=== PATIENT | male | born 2000 | race Caucasian/White ===

== ENCOUNTER 2022-12-09 16:24 | Emergency (ER) | payer MEDICAID, SELFPAY ==
[2022-12-09 16:31] VITALS: BP 121/78; PULSE 67; RESP 18; TEMP 36.7; O2SAT 100; BMI 26.3
--- NOTE | 2022-12-09 17:06 | ED_ITS ---
HPI - Abdominal Pain General Time Seen by Provider: 17:06 Date Seen: 12/09/22 Chief Complaint: Abdominal Pain Stated Complaint: Stomach issues Time Seen by Provider: 12/09/22 17:05 Source: patient and RN notes reviewed Mode of arrival: ambulatory Limitations: no limitations History of Present Illness HPI narrative: Dony is a 22-year-old male coming in with his guardian with concern of sore rectal area from about a 2 week history of diarrhea per report. They state that they were at a different outside clinic, he got a rectal exam and was told that he was probably constipated. They were upset as they state an abdominal exam was never done. He has not had any stool production for about 2 days but really isn't eating much per report. He has had some nausea but no vomiting. No fevers with this. His rectal area sore. His guardian has been helping him white to do it more gently and they have been applying some hydrocortisone. She did bring a picture in where it looks to be some hemorrhoidal tissue but pictures a bit blurry. They have reptiles at home and dogs. There has been no significant travel, went to [place] but not to any [employer] recently. No known ill contacts. There is no history of C difficile colitis. His dad had it about 7 years ago but that is the only known exposure. Patient himself has never had it. Related Data Allergies Allergy/AdvReac Type Severity Reaction Status Date / Time Penicillins Allergy Verified 12/09/22 16:31 Review of Systems Status of ROS Reports: 6 or more systems reviewed and unremarkable except as noted in History and below PFSH PFS Social History Smoking Status: Current every day smoker Do you use any of these nicotine containing products: E-Cigarettes Second hand tobacco smoke exposure: No How often do you have a drink containing alcohol: never How often do you have six or more drinks on one occasion: Never AUDIT-C Alcohol total score: 0 Non-prescribed substance use: marijuana (any form) Non-prescribed substance use details: daily medical marijuana service: No Exam Const: Vital Signs, click to edit/add: Vital Signs - 24 hr 12/09/22 16:31 Temperature 98.1 F Pulse Rate [Pulse Oximeter] 67 Respiratory Rate 18 Blood Pressure [Ri ght Upper Arm] 121/78 Pulse Oximetry 100 Oxygen Delivery Me thod Room Air Documenting provider has reviewed patient's vital signs: yes Common normals: no apparent distress, oriented x3, no limitations, healthy appearing, alert and well nourished General appearance: cooperative, comfortable, well kempt and well developed Nutritional appearance: overweight HENMT: Common normals: normocephalic, head/scalp atraumatic, hearing grossly normal bilaterally, moist oral mucous membranes and oropharynx normal Head and scalp: normocephalic and atraumatic Face and sinus: normal facial exam Eye: Common normals: PERRL, EOMs intact bilaterally, conjunctivae normal and no scleral icterus Conjunctiva: conjunctiva(e) normal Pupil: PERRL Neck & C-Spine: Common normals: full ROM, no lymphadenopathy, supple and no JVD Resp: Common normals: normal respiratory effort, no retractions, no use of accessory muscles and clear to auscultation bilaterally Auscultation: clear to auscultation bilaterally Cardio: Common normals: no JVD, regular rate, regular rhythm, S1 normal heart sound, S2 normal heart sound, no gallops and no clicks Rate: regular rate Rhythm: regular rhythm Heart sounds: S1 normal and S2 normal GI: Common normals: soft to palpation and no hepatosplenomegaly Inspection: normal to inspection Auscultation: absent bowel sounds Palpation: soft and no hepatosplenomegaly Other: Abdomen is soft, nontender anywhere but I do not hear bowel sounds. There certainly not any masses. Inspection of the anal area reveals some erythema that extends a ways out, no excoriations or open wounds. No visible hemorrhoids at this time. There is a little bit of whitish material which is the hydrocortisone cream that they had put over the area of erythema on the skin. Extremity: Common normals: no pedal edema Neuro: Common normals: oriented x3 and moves all extremities Sensorium/orientation: alert Speech: speech normal Gait (neuro): normal gait Psych: Appearance: well kempt Course Course Hospital Course: Mom is concerned and would like abdominal imaging, I think it is fair to start with a flat and upright. Will get baseline labs on him. Have discussed conservative management for the irritated anal area. Reevaluation(s) Time of Reevaluation #1: 18:59 Reevaluation #1: X-ray imaging has not been read by Radiology but they are requesting to leave. I have reviewed the normal lab workup with them. I personally do not see any evidence of any acute pathology on this flat and upright of his abdomen on imaging but the understand that there is no radiology over read. They may have to return if there is any concern. They would like to try to go home at this time. Vital Signs Vital signs: Initial Vital Signs Temperature 98.1 F 12/09/22 16:31 Temperature Source Temporal Artery Scan 12/09/22 16:31 Pulse Rate 67 12/09/22 16:31 Pulse Rhythm Regular 12/09/22 16:31 Respiratory Rate 18 12/09/22 16:31 Blood Pressure 121/78 12/09/22 16:31 Blood Pressure Mean 92 12/09/22 16:31 Blood Pressure Position Sitting 12/09/22 16:31 Pulse Oximetry 100 12/09/22 16:31 Oxygen Delivery Method Room Air 12/09/22 16:31 Vital Signs Temperature 98.1 F 12/09/22 16:31 Pulse Rate 67 12/09/22 16:31 Respiratory Rate 18 12/09/22 16:31 Blood Pressure 121/78 12/09/22 16:31 Pulse Oximetry 100 12/09/22 16:31 Oxygen Delivery Method Room Air 12/09/22 16:31 Temperature 98.1 F 12/09/22 16:31 Pulse Rate 67 12/09/22 16:31 Respiratory Rate 18 12/09/22 16:31 Blood Pressure 121/78 12/09/22 16:31 Pulse Oximetry 100 12/09/22 16:31 Oxygen Delivery Method Room Air 12/09/22 16:31 MDM - Abdominal Pain Differential Diagnosis Differential diagnosis: Likely abdominal pain, constipation, gastroenteritis and small bowel obstruction Lab Data Attestation: I reviewed the patient's lab results. Labs: Lab Results 12/09/22 Range/Units 17:40 WBC 7.13 (4.50-11.00) K/uL RBC 5.36 (4.30-5.90) m/uL Hgb 14.8 (13.5-17.5) gm/dL Hct 43.1 (37.0-53.0) % MCV 80 (80-100) fL MCH 28 (26-34) pg MCHC 34 (32-36) gm/dL RDW Coeff of Silas 11.7 (11.5-15.5) % Plt Count 267 (140-440) K/uL Neut % (Auto) 55.6 (42.0-72.0) % Lymph % (Auto) 33.8 (20-44) % [place] % (Auto) 6.6 (0.0-11.0) % Eos % (Auto) 3.2 (0.0-7.0) % Baso % (Auto) 0.7 (0.0-3.0) % Neut # (Auto) 3.96 (1.7-7.0) K/uL Lymph # (Auto) 2.41 (0.90-2.90) K/uL [place] # (Auto) 0.50 (0.00-0.90) K/UL Eos # (Auto) 0.23 (0.00-0.50) K/uL Baso # (Auto) 0.05 (0.00-0.30) K/uL Abs Immat Gran (auto) 0.01 (0.00-0.30) K/uL Imm/Tot Granulo (auto) 0.1 % Sodium 140 (135-149) mmol/L Potassium 3.5 L (3.6-5.1) mmol/L Chloride 108 (96-114) mmol/L Carbon Dioxide 20 (20-32) mmol/L BUN 15 (5-24) mg/dL Creatinine 0.9 (0.5-1.5) mg/dL Estimated Creat Clear 112.94 Estimated GFR 125 ml/min Glucose 97 (60-115) mg/dL Calcium 8.7 (8.4-10.6) mg/dL C-Reactive Protein < 0.5 L (0.5-1.0) mg/dL Imaging Data Abdominal x-ray: Attestation: I have reviewed the pertinent imaging results. My impression: I see no acute evidence of any obstructive pathology on this flat and upright. Await Radiology over-read. Radiologist's impression: Patient: DONY BROWNING Facility:?[facility] Patient ID:?[id number] Site Patient ID:?[id number]. Site :?2001 Study:?XRay Abdomen/Pelvis 2 VIEWS-12/09/2022 6:12:31 PM Ordering Physician:Val Rodriguez Final Report: Indication: Abdominal pain, diarrhea. Technique: Abdomen 2 view. Comparison: None. Findings/Impression: Non-obstructive bowel gas pattern. No free air. No abnormal abdominal calcifications. Osseous structures are unremarkable for age. Dictated by Truong Spears MD @ 12/09/2022 7:19:02 PM (Electronic Signature) Critical Care Time Critical Care Time Critical Care Time: No Discharge Plan Discharge Clinical Impression: Perianal excoriation, Diarrhea Patient Disposition: Home w/ Parent or Adult Condition: Stable Instructions: Acute Diarrhea (ED), Nutrition Tips for Relief of Diarrhea (ED) Additional Instructions: Recommend getting a barrier cream like Desitin and using this between stools. To wipe, would recommend getting non perfumed sensitive baby wipes so that you can clean yourself better and not cause the irritation with the toilet paper. Showering daily and allowing the anal area to air dry well is important. Can use a cool blow continuous linter drier operator to blow between the buttocks to get the skin dry. Would apply barrier cream at this point. If diarrhea returns, do recommend getting stool cultures/stool studies done in clinic. Follow handouts. Really need to push fluids to stay hydrated. Can use Tylenol and ibuprofen if needed for any abdominal cramping or pain, follow bottle directions for dosing. Can also try heating pad. Absolutely do need to follow up though if diarrhea returns or if symptoms are continuing. Activity Level: Activity as Tolerated Stand Alone Forms: MyHealth Info Instructions
--- NOTE | 2022-12-09 17:14 | CRLHL7_ITS ---
For Patients: As a result of the Century Cures Act, medical imaging exams and procedure reports are released immediately into your electronic medical record. You may view this report before your referring provider. If you have questions, please contact your health care provider. Indication: Abdominal pain, diarrhea. Technique: Abdomen 2 view. Comparison: None. Findings/Impression: Non-obstructive bowel gas pattern. No free air. No abnormal abdominal calcifications. Osseous structures are unremarkable for age. Dictated by Truong Spears MD @ 12/09/2022 7:19:02 PM (Electronically Signed)
[2022-12-09 17:48] LABS: Basophils Absolute Auto 0.05 K/uL (0.00-0.30); Basophils Percent Auto 0.7 % (0.0-3.0); Eosinophils Absolute Auto 0.23 K/uL (0.00-0.50); Eosinophils Percent Auto 3.2 % (0.0-7.0); Hematocrit 43.1 % (37.0-53.0); Hemoglobin* 14.8 gm/dL (13.5-17.5); Immature Granulocytes Abs Auto 0.01 K/uL (0.00-0.30); Immature Granulocytes Pct Auto 0.1 %; Lymphocytes Absolute Auto 2.41 K/uL (0.90-2.90); Lymphocytes Percent Auto 33.8 % (20-44); Mean Corpuscular HGB Conc 34 gm/dL (32-36); Mean Corpuscular Hemoglobin 28 pg (26-34); Mean Corpuscular Volume 80 fL (80-100); Monocytes Percent Auto 6.6 % (0.0-11.0); Neutrophils Absolute Auto 3.96 K/uL (1.7-7.0); Neutrophils Percent Auto 55.6 % (42.0-72.0); Platelet Count* 267 K/uL (140-440); RDW Coefficient of Variation % 11.7 % (11.5-15.5); Red Blood Count 5.36 m/uL (4.30-5.90); White Blood Count* 7.13 K/uL (4.50-11.00)
[2022-12-09 17:51] LABS: Slide Review Reflex No
[2022-12-09 18:08] LABS: Chloride* 108 mmol/L (96-114)
[2022-12-09 18:09] LABS: Potassium* 3.5 mmol/L (3.6-5.1); Sodium* 140 mmol/L (135-149)
[2022-12-09 18:11] LABS: Creatinine* 0.9 mg/dL (0.5-1.5); Est. Creatinine Clearance* 112.94; Estimated Glomerular Filt Rate 125 ml/min
[2022-12-09 18:12] LABS: Blood Urea Nitrogen* 15 mg/dL (5-24); Carbon Dioxide* 20 mmol/L (20-32)
[2022-12-09 18:13] LABS: Calcium* 8.7 mg/dL (8.4-10.6); Glucose* 97 mg/dL (60-115)
[2022-12-09 18:28] LABS: C Reactive Protein* < 0.5 mg/dL (0.5-1.0)
--- NOTE | 2022-12-09 18:51 | ED.NURSE ---
Mother is out to the desk and is wondering what waiting for and continue to wait for the radiologist to read the report. Offered TV or anything else and ok with this answer and understand.
== END 2022-12-09 19:25 | disposition home or self-care (01) ==
PROVIDERS: Emergency Provider Family Medicine; PCP Family Medicine
DX: F42.4 Excoriation (skin-picking) disorder (principal); R19.7 Diarrhea, unspecified
CPT/HCPCS: 36415; 74019; 80048; 85025; 86140; 99284

== ENCOUNTER 2023-06-13 13:23 | Emergency (ER) | payer MEDICAID, SELFPAY ==
[2023-06-13 13:34] VITALS: BP 119/72; PULSE 104; RESP 22; O2SAT 98; BMI 30.9
--- NOTE | 2023-06-13 13:38 | ED_ITS ---
HPI - Psych General Time Seen by Provider: 13:38 Date Seen: 06/13/23 Chief Complaint: Psychiatric Problem/Disorder Stated Complaint: chest pain, weak Time Seen by Provider: 06/13/23 13:30 Source: patient, family, RN notes reviewed and old records reviewed Mode of arrival: ambulatory Limitations: no limitations History of Present Illness HPI Narrative: Dony is a 22-year-old male accompanied by his mom for concern of chest symptoms and anxiety. Dony has a long-term history of anxiety, autism, ADHD, GERD, history of chronic abdominal pain, migraines. They report that he has been off his Seroquel and trazodone for which she has been on for years for chronic insomnia. He is not sleeping. About 2 weeks ago he was given Vistaril, he feels like he is crawling out of his skin. At times he feels left chest pain, there is some pain with breathing. Endorses being worried about dying from cancer getting cancer, worries about if his parents get cancer. Mom states that his primary provider would not give them a prescription for the Seroquel her trazodone, relaying to me that this provider does not believe in the medication. I cannot attest to this, was not involved in the conversation. I do know looking back in our records that he was on trazodone in 2009, in 2017 he was on Seroquel, trazodone, Topamax, fluoxetine, Vyvanse. Mom states just recently he finally got his Vyvanse prescription. She does know as anxiety is worse, his insomnia is problematic any is not sleeping. He denies any hallucinations, no suicidality. He does admit the lid he can not quit thinking about getting cancer and being worried about this. He had been off fluoxetine for months, was taking his dad, recently got his own prescription. Missed 1 day but otherwise has been taking it. He has had no cough or cold symptoms, no fevers or chills. He does endorse reflux symptoms, regurgitant symptoms despite taking daily omeprazole. They were told that he needs to get medicines from Psychiatry, Mom states she has him on 3 different waiting list, they are unable to get him into Psychiatry for these medicines at this time. Related Data Home Medications Medication Instructions Recorded Confirmed fluoxetine 40 mg capsule 40 mg PO QAM 06/13/23 06/13/23 hydroxyzine HCl 25 mg tablet 25 mg PO QPM PRN anxiety 06/13/23 06/13/23 Previous Rx's Medication Instructions Recorded quetiapine 50 mg tablet (Seroquel) 50 mg PO QHS #30 tabs 06/13/23 trazodone 50 mg tablet 50 mg PO QHS #30 tabs 06/13/23 Allergies Allergy/AdvReac Type Severity Reaction Status Date / Time Penicillins Allergy Verified 12/09/22 16:31 Review of Systems Status of ROS: Reports: 6 or more systems reviewed and unremarkable except as noted in History and below [facility] Social History Smoking Status: Current every day smoker Do you use any of these nicotine containing products: E-Cigarettes Second hand tobacco smoke exposure: No How often do you have a drink containing alcohol: never How often do you have six or more drinks on one occasion: Never AUDIT-C Alcohol total score: 0 Non-prescribed substance use: marijuana (any form) Non-prescribed substance use details: daily medical marijuana service: No Exam Const: Vital Signs, click to edit/add: Vital Signs - 24 hr 06/13/23 13:34 Pulse Rate [Pulse Oximeter] 104 H Respiratory Rate 22 Blood Pressure [Ri ght Upper Arm] 119/72 Pulse Oximetry 98 Oxygen Delivery Me thod Room Air Dony is mildly disheveled but alert. He does not have great eye contact, is less conversive than I remember him to be in the past. His speech is normal when he does speak. Does seem to avoid eye contact at times. Sclerae are clear, conjugate gaze, symmetrical facial function. Lungs are clear, good air entry, no wheezing or crackles. CV regular rate and rhythm, no murmur, normal S1-S2, no S3-S4. No reproducible chest wall pain, abdomen is soft, nontender, nondistended, no organomegaly, no rebound or guarding. Is ambulatory into the E D of his own accord, moving extremities normally. Documenting provider has reviewed patient's vital signs: yes Course Course ED Course: I certainly support a long-term history of insomnia, anxiety, autism, ADHD in his history. With that said, have reviewed with them that we should look at an EKG, some basic labs including a troponin as well as a chest x-ray. I am hopeful that his symptoms are more novelties sales representative of anxiety. He certainly is giving history of perseveration over medical issues. I do think could be reasonable to re-initiate Seroquel and trazodone, he has been off of it for months, would recommend 50 mg of each nightly, right for this medicine but they are going to need to find someone that is willing to take over management and potentially increase the dose is back to his baseline in 2-4 weeks. Reevaluation(s) Time of Reevaluation #1: 15:13 Reevaluation #1: Have reviewed with patient and his mom the normal EKG, normal labs, normal chest x-ray. He is feeling quite jumpy, like his skin is crawling a right now. We discussed holding on the Vistaril at home, will give him 25 mg oral Seroquel prior to discharge. He is relieved his labs and workup is normal. This does provide him some reassurance, did seem smile when I told him everything was okay. He is instructed to continue taking the fluoxetine daily. We will re- initiate bedtime Seroquel and trazodone, he has been off it for few months in do think that it would be beneficial to titrate back up. Thus, have written for 50 mg of each 1 of these medications to start. He is not suicidal, no hallucinations, do think he is stable to discharge. Hopefully with these medicines on board, he will start to improve. If that is not the case, may need more urgent or emergent re-evaluation if worsening. His mom is well aware and will watch him closely. Vital Signs Vital signs: Initial Vital Signs Pulse Rate 104 H 06/13/23 13:34 Respiratory Rate 22 06/13/23 13:34 Blood Pressure 119/72 06/13/23 13:34 Blood Pressure Mean 87 06/13/23 13:34 Blood Pressure Position Sitting 06/13/23 13:34 Pulse Oximetry 98 06/13/23 13:34 Oxygen Delivery Method Room Air 06/13/23 13:34 Vital Signs Pulse Rate 104 H 06/13/23 13:34 Respiratory Rate 22 06/13/23 13:34 Blood Pressure 119/72 06/13/23 13:34 Pulse Oximetry 98 06/13/23 13:34 Oxygen Delivery Method Room Air 06/13/23 13:34 Pulse Rate 104 H 06/13/23 13:34 Respiratory Rate 22 06/13/23 13:34 Blood Pressure 119/72 06/13/23 13:34 Pulse Oximetry 98 06/13/23 13:34 Oxygen Delivery Method Room Air 06/13/23 13:34 MDM - Psych Lab Data Attestation: I reviewed the patient's lab results. Labs: Lab Results 06/13/23 Range/Units 13:58 WBC 8.21 (4.50-11.00) K/uL RBC 6.13 H (4.30-5.90) m/uL Hgb 17.1 (13.5-17.5) gm/dL Hct 48.8 (37.0-53.0) % MCV 80 (80-100) fL MCH 28 (26-34) pg MCHC 35 (32-36) gm/dL RDW Coeff of Silas 11.6 (11.5-15.5) % Plt Count 317 (140-440) K/uL Neut % (Auto) 72.6 H (42.0-72.0) % Lymph % (Auto) 21.3 (20-44) % [place] % (Auto) 5.4 (0.0-11.0) % Eos % (Auto) 0.4 (0.0-7.0) % Baso % (Auto) 0.2 (0.0-3.0) % Neut # (Auto) 6.00 (1.7-7.0) K/uL Lymph # (Auto) 1.75 (0.90-2.90) K/uL [place] # (Auto) 0.40 (0.00-0.90) K/UL Eos # (Auto) 0.03 (0.00-0.50) K/uL Baso # (Auto) 0.02 (0.00-0.30) K/uL Abs Immat Gran (auto) 0.01 (0.00-0.30) K/uL Imm/Tot Granulo (auto) 0.1 % Sodium 138 (135-149) mmol/L Potassium 3.9 (3.6-5.1) mmol/L Chloride 104 (96-114) mmol/L Carbon Dioxide 24 (20-32) mmol/L Anion Gap 10 (7-15) mEq/L BUN 12 (5-24) mg/dL Creatinine 0.8 (0.5-1.5) mg/dL Estimated Creat Clear 122.31 Estimated GFR 129 ml/min Glucose 114 (60-115) mg/dL Calcium 9.6 (8.4-10.6) mg/dL Total Bilirubin 0.8 (0.1-1.5) mg/dL AST 25 (12-35) U/L ALT 22 (4-50) U/L Alkaline Phosphatase 91 (40-150) U/L Troponin I < 0.01 L (0.01-0.04) ng/mL Total Protein 8.4 H (6.0-8.3) g/dL Albumin 5.2 H (3.3-5.0) g/dL Imaging Data Chest x-ray: Attestation: I have reviewed the pertinent imaging results. My impression: I see no acute pathology on my preliminary review. Radiologist's impression: Patient: DONY BROWNING Facility:?[facility] Patient ID:?[id number] Site Patient ID:?[id number]. Site :?2001 Study:?XRay Chest 2V-06/13/2023 2:21:21 PM Ordering Physician:Val Rodriguez Final Report: INDICATION: Chest pain. TECHNIQUE: Chest 2 views. COMPARISON: None. FINDINGS: Cardiovascular and mediastinum: Heart size and vasculature are normal in caliber and appearance. Lungs and pleural spaces: Lungs are clear. No sign of infiltrate or mass. No sign of pleural effusion. No pneumothorax. Bones and soft tissues: No significant findings. IMPRESSION: No acute or significant findings. Dictated by Angel Mckeon MD @ 06/13/2023 2:39:10 PM (Electronic Signature) ECG Data Attestation: I personally reviewed and interpreted this ECG as follows: (Normal sinus rhythm, 85 beats per minute. No acute concerning changes on this EKG. QT corrected 435 milliseconds.) ECG interpretation date: 06/13/23 ECG interpretation time: 14:02 Prior ECG tracings: not available for review Discharge Plan Discharge Clinical Impression: Acute anxiety, Chest pain Patient Disposition: Home w/ Parent or Adult Condition: Stable Instructions: Noncardiac Chest Pain (ED), Anxiety (ED) Additional Instructions: We will initiate Seroquel 50 mg nightly and trazodone 50 mg nightly. If tolerating this and no side effects, dose can be adjusted back to the 100 mg nightly that you use to be on in 2-4 weeks. You will need to find a clinic provider that will take over care of this medicine. Indeed, looking back in the records trazodone has been on board since before 2009, Seroquel at least since 2017 if not before. I do think you need to discuss chronic heartburn symptoms with the primary care provider despite the omeprazole use. Other tests like an EGD and Melissa study could be considered for chronic uncontrolled heartburn, certainly H pylori testing might be indicated if it has never been done. Continue to work on trying to find a psychiatrist, highly support doing this. I do understand it can take time to get into a psychiatrist. We cannot provide refills of these medicines through the ER, have written for a month's worth of each of these which we typically will not do. Hopefully this gives you time to get established with someone that will take over these medicines. Activity Level: No Restrictions Prescriptions: New trazodone 50 mg tablet 50 mg PO QHS Qty: 30 0RF quetiapine [Seroquel] 50 mg tablet 50 mg PO QHS Qty: 30 0RF No Action fluoxetine 40 mg capsule 40 mg PO QAM hydroxyzine HCl 25 mg tablet 25 mg PO QPM PRN (Reason: anxiety) Follow Up/Referrals: Yi Stephens DO [Primary Care Provider] - Stand Alone Forms: [facility] Info Instructions
--- NOTE | 2023-06-13 13:48 | CRLHL7_ITS ---
For Patients: As a result of the Cures Act, medical imaging exams and procedure reports are released immediately into your electronic medical record. You may view this report before your referring provider. If you have questions, please contact your health care provider. INDICATION: Chest pain. TECHNIQUE: Chest 2 views. COMPARISON: None. FINDINGS: Cardiovascular and mediastinum: Heart size and vasculature are normal in caliber and appearance. Lungs and pleural spaces: Lungs are clear. No sign of infiltrate or mass. No sign of pleural effusion. No pneumothorax. Bones and soft tissues: No significant findings. IMPRESSION: No acute or significant findings. Dictated by Angel Mckeon MD @ 06/13/2023 2:39:10 PM (Electronically Signed)
[2023-06-13 14:20] LABS: Basophils Absolute Auto 0.02 K/uL (0.00-0.30); Basophils Percent Auto 0.2 % (0.0-3.0); Eosinophils Absolute Auto 0.03 K/uL (0.00-0.50); Eosinophils Percent Auto 0.4 % (0.0-7.0); Hematocrit 48.8 % (37.0-53.0); Hemoglobin* 17.1 gm/dL (13.5-17.5); Immature Granulocytes Abs Auto 0.01 K/uL (0.00-0.30); Immature Granulocytes Pct Auto 0.1 %; Lymphocytes Absolute Auto 1.75 K/uL (0.90-2.90); Lymphocytes Percent Auto 21.3 % (20-44); Mean Corpuscular HGB Conc 35 gm/dL (32-36); Mean Corpuscular Hemoglobin 28 pg (26-34); Mean Corpuscular Volume 80 fL (80-100); Monocytes Percent Auto 5.4 % (0.0-11.0); Neutrophils Percent Auto 72.6 % (42.0-72.0); Platelet Count* 317 K/uL (140-440); RDW Coefficient of Variation % 11.6 % (11.5-15.5); Red Blood Count 6.13 m/uL (4.30-5.90); White Blood Count* 8.21 K/uL (4.50-11.00)
[2023-06-13 14:35] LABS: Albumin* 5.2 g/dL (3.3-5.0); Chloride* 104 mmol/L (96-114)
[2023-06-13 14:36] LABS: Potassium* 3.9 mmol/L (3.6-5.1); Sodium* 138 mmol/L (135-149)
[2023-06-13 14:38] LABS: Anion Gap 10 mEq/L (7-15); Aspartate Amino Transferase* 25 U/L (12-35); Bilirubin Total* 0.8 mg/dL (0.1-1.5); Carbon Dioxide* 24 mmol/L (20-32); Creatinine* 0.8 mg/dL (0.5-1.5); Est. Creatinine Clearance* 122.31; Estimated Glomerular Filt Rate 129 ml/min; Total Protein* 8.4 g/dL (6.0-8.3)
[2023-06-13 14:39] LABS: Alanine Aminotransferase* 22 U/L (4-50); Alkaline Phosphatase* 91 U/L (40-150); Blood Urea Nitrogen* 12 mg/dL (5-24); Calcium* 9.6 mg/dL (8.4-10.6); Glucose* 114 mg/dL (60-115)
[2023-06-13 14:51] LABS: Troponin I* < 0.01 ng/mL (0.01-0.04)
[2023-06-13] MEDS: QUETIAPINE 25 MG TABLET PO (15:27)
[2023-06-13 16:23] LABS: Slide Review Reflex No
== END 2023-06-13 15:34 | disposition home or self-care (01) ==
PROVIDERS: Emergency Provider Family Medicine; PCP Family Medicine
DX: F41.9 Anxiety disorder, unspecified (principal); R07.9 Chest pain, unspecified
CPT/HCPCS: 36415; 71046; 80053; 84484; 85025; 93005; 99284; 99285; A9270

== ENCOUNTER 2023-09-23 19:29 | Emergency (ER) | payer MEDICAID, SELFPAY ==
[2023-09-23 19:37] VITALS: BP 126/97; PULSE 95; RESP 16; TEMP 36.4; O2SAT 96
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
[2023-09-23] MEDS: IBUPROFEN 200 MG TABLET 400 MG PO (20:01)
== END 2023-09-23 20:40 | disposition home or self-care (01) ==
PROVIDERS: Emergency Provider Emergency Medicine; PCP Family Medicine
DX: S00.83XA Contusion of other part of head, initial encounter (principal); S60.811A Abrasion of right wrist, initial encounter; Y04.2XXA Assault by strike against or bumped into by another person, initial encounter
CPT/HCPCS: 70486; 73110; 73130; 99284; 99285; A9270

== ENCOUNTER 2025-01-09 15:56 | Emergency (ER) | payer MEDICAID, SELFPAY ==
--- OUTSIDE RECORDS SUMMARY | 2025-01-09 15:58 | XMS_ITS | Clinical Summary ---
[facility] Address [address] [place] [address] Care Team Providers Care Material Control Clerk Name Role Phone Unavailable Primary Care Provider Unavailabl e Source Comments You are receiving this document as you are listed as the primary care provider,follow-up provider, or the patient has been referred to you for consultation.This is in compliance with the Medicare andMedicaid EHR Incentive Program,which states Providers who transition their patient to another setting of careor provider of care or refers their patient to another provider of care shouldprovide summary care record for each transition of care or referral. [facility] Allergies Active Allergy Reactions Criticality Noted Date Comments Penicillins Anaphylaxis High 12/06/2022 Medications clonazePAM (KLONOPIN) 0.5 MG tablet Take HALF to 1 tablet by mouth three times a day, as needed for agitation. 3 Active FLUoxetine (PROZAC) 40 MG capsule Take 1 Capsule (40 mg) by mouth daily. 3 Active QUEtiapine (SEROQUEL) 100 MG tablet SMARTSI Tablet(s) By Mouth Every Evening 3 Active lisdexamfetamin e (VYVANSE) 50 MG capsule Take 1 Capsule (50 mg) by mouth daily. Active topiramate (TOPAMAX) 200 MG tablet Take 1 Tablet (200 mg) by mouth two times a day. Active traZODone (DESYREL) 50 MG tablet Take 1 Tablet (50 mg) by mouth daily at bedtime. Active medical cannabis patient certified Take as instructed .. 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 Gender Identity Not on file Sexual Orientation Not on file Last Filed Vital Signs Vital Sign Reading Time Taken Comments Blood Pressure 112/74 12/06/2022 2:29 PM CDT Pulse 104 12/06/2022 2:29 PM CDT Temperature 36.8 C (98.3 F) 12/06/2022 2:29 PM CDT Respiratory Rate 18 12/06/2022 2:29 PM CDT Oxygen Saturation 100% 12/06/2022 2:29 PM CDT Inhaled Oxygen Concentration - - Weight - - Height - - Body Mass Index - - Plan of Treatment Health Maintenance Due Date Last Done Comments Hep C Screening (Preventive Services) 2001 MenB Immunization Discussion 2001 HIV Screening (Preventive Services) 2017 Adult Preventive Visit 07/26/2019 HepB Vaccine (1) 2020 DTaP/Tdap/Td Vaccine (6 - Tdap) 06/01/2022 06/01/2012, 09/03/2005, 11/17/2002, Additional history exists COVID-19 Vaccine ( season) 2024 01/29/2021, 01/01/2021 Influenza Vaccine (#1) 2025 8, 04/28/2017, 04/28/2015, Additional history exists Zoster/Shingles Vaccine (1 of 2) 07/26/2051 Hib Vaccine Aged Out 09/02/2002, 05/04/2002 No lo nger eligible based on patient's age to complete this topic Pneumococcal Vaccine Aged Out 11/16/2002, 09/02/2002, 07/16/2002, Additional history exists No longer eligible based on patient's age to complete this topic IPV (Polio) Vaccine Completed 09/03/2005, 07/16/2002, 05/04/2002 HepA Vaccine Completed 08/17/2012, 05/28/2011 HPV Vaccine Completed 04/28/2017, 01/14/2014 MCV4 Vaccine Completed 04/20/2018, 01/14/2014
--- OUTSIDE RECORDS SUMMARY | 2025-01-09 15:58 | XMS_ITS | Clinical Summary ---
Author Organization [facility] Address [address] [place] [id number] Care Team Providers Care Textile Machine Mechanic Name Role Phone Yi Stephens DO Primary Care Provider [phone] Allergies Active Allergy Reactions Criticality Noted Date Comments Amoxicillin 08/21/2010 Penicillins Anaphylaxis High 12/06/2022 Medications topiramate (TOPAMAX) 100 mg tablet Take 1 tablet by mouth 2 times daily. 0 12/13/19 15 Active clonazePAM (KLONOPIN) 0.5 mg tablet 04/07/20 15 Active acetaminophen (TYLENOL) 325 mg tabletIndications :Headache, unspecified headache type 1-2 tablets four times daily as needed headache Max acetaminophen dose: 4000mg in 24 hrs. 100 tablet 1 06/19/19 16 Active QUEtiapine (SEROQUEL) 100 mg tablet 1 06/09/19 18 Active traZODone (DESYREL) 50 mg tablet Take 150 mg by mouth at bedtime. one tablet 2 04/21/20 18 Active medication order [facility] Medical Cannabis- Rhoda oral suspension: take 0.5 ml - 3 ml by mouth twice daily. Titrate dose as needed. Rhoda Vaporizer oil: inhale 1-3 puffs up to 4 times daily as needed. Inhalations should be 1 sec. In duration. 0 08/18/19 19 Active loratadine (CLARITIN) 10 mg tabletIndications :Non-seasonal allergic rhinitis, unspecified trigger Take 1 tablet by mouth once daily. 90 tablet 1 07/21/19 21 Active albuterol HFA (VENTOLIN HFA) 90 mcg/actuation inhalerIndication s:Subacute cough,Bronchospas m Inhale 1 Puff by mouth 4 times daily if needed. 1 Each 07/21/19 21 Active fluticasone (50 mcg per actuation) nasal solution (FLONASE)Indicati ons:Bronchospasm, Non-seasonal allergic rhinitis, unspecified trigger Inhale 1 Ragley into both nostrils once daily. 1 Bottle 07/21/19 21 Active omeprazole 20 mg tabletIndications :Intractable vomiting with nausea, unspecified vomiting type Take one tablet daily 30 minutes prior to breakfast. 30 Tablet 3 10/28/19 21 Active FLUoxetine (PROZAC) 40 mg capsuleIndication s:Generalized anxiety disorder,Moderate episode of recurrent major depressive disorder (HC) Take 1 Capsule (40 mg) by mouth every morning. 90 Capsule 05/30/19 24 Active hydrOXYzine HCL (ATARAX) 25 mg tabletIndications :Insomnia, unspecified type Take 1 Tablet (25 mg) by mouth at bedtime if needed for Anxiety. 30 Tablet 05/30/19 24 Active lisdexamfetamine (Vyvanse) 60 mg capsuleIndication s:Attention deficit hyperactivity disorder (ADHD), combined type Take 1 Capsule (60 mg) by mouth every morning. 30 Capsule 05/30/19 24 Active Active Problems Problem Noted Date Diagnosed Date Moderate episode of recurrent major depressive d isorder 05/31/2023 Generalized anxiety disorder 05/31/2023 Non-seasonal allergic rhinitis 10/27/2020 Hyperopic astigmatism of both eyes 06/16/2017 PVC (premature ventricular contraction) 02/26/20 16 Overview (02/26/2016): 02/26/16 Cardiology evaluation (Dr. Richi Urias). Benign PVCs. Echo normal. Plan: holter to help quantify events. Unless Holter abnormal, recommend follow up in one year with repeat Holter. No restrictions. Enthesitis 05/22/2015 Overview (05/22/2015): Chronic pain mostly at insertion point of multiple joints. Evaluation by [facility]. Labs unremarkable. Recommended aleve BID. Will need to d/c for at least one week prior to surgery planned in Jun 2015. Recommend follow up again with Rheum, end of May. LABS recommended prior to surgery--see dictation (05/11/15). Pes planovalgus 01/23/2015 Overview (04/28/2015): 01/18/15 Also mild external tibial torsion. Orth[facility]--Dr. Riddle. 04/2015 Update--planning for surgery 06/2015 due to persistent pain and foot swelling. Having rheumatology evaluation as well due to recurrent swelling. Insomnia 06/29/2013 Anxiety 06/29/2013 Autism 11/30/2012 ADHD (attention deficit hyperactivity disorder) 11/30/2012 GERD (gastroesophageal reflux disease) Constipation Chronic abdominal pain Resolved Problems Problem Noted Date Diagnosed Date Resolved Date Weight loss 01/22/2013 04/28/2015 Overview (01/22/2013): Weight loss, abdominal pain and diarrhea. Evaluation by [facility] 12/2012. Planning for endoscopy with sedation and multiple labs and biopsies to be done at same time. Encounters Date Type Department Care Team Description 01/06/2025 Nurse Triage [facility] [address] [place], [place] [id number] Yi Stephens, Blood In Stool 01/04/2025 Telephone [facility] [address] [place] [address] Mague Mckay PA Blood In Stool (appointment 01/07) from Last 3 Months Immunizations Immunization Administration Dates Next Due AMB Influenza, (Flumist) Shala e Intranasal,LAIV4 (Flu Clinic Only) 03/05/2013 DTaP 09/03/2005, 3,09/02/2002,07/16,05/04/2002 HIB-HepB (Comvax) 09/02/2002,05/04/2002 HPV 9 (Gardasil 9) 04/28/2017 Hepatitis A (Peds) 08/17/2012,05/28/2011 Hepatitis B (Peds) 09/03/2005 Human Papilloma Virus Vaccine 01/14/2014 Inactivated Polio Vaccine 09/03/2005,07/16/2002, 05/04/2002 Influenza, IIV3 (Age >=3 years) 02/16/2009,04/01 Influenza, IIV4 04/20/2018,04/28/2017 Influenza,LAIV3 Live Intrana vernon (Flumist) 04/28/2015,03/05/2013,06/01/2012,05/21 Influenza,LAIV4 Live Intrana vernon (Flumist) 04/28/2015,06/01/2012,05/21/2011 MENINGOCOCCAL VACCINE 2 VIAL 2MO-55YO (MENVEO) 04/20/2018,01/14/2014 MMR 09/10/2006,11/17/2002 Pneumococcal conj 7-Valent (Prevnar 7) 0 11/17/2002,09/02/2002,07/16/2002,05/04 Tdap 05/30/2023,06/01/2012 Varicella Vaccine 09/10/2006,09/02/2002 Family History Medical History Relation Name Comments Asthma Brother 1 Anoop roth Other Brother 2 lazy eye Other Maternal Grandmother glaucom a Other Mother Mckenzie Factor V Leiden deficiency Relation Name Status Comments Brother 1 Anoop Thapa Brother 2 Maternal Grandmother Mother Mckenzie Social History Tobacco Use Types Packs/Day Years Used Date Smoking Tobacco: Never Smokeless Tobacco: Never Tobacco Cessation:Counseling Given: Yes Comments:non smoking home Alcohol Use Standard Drinks/Week Comments No 0 (1 standard drink = 0.6 oz pur e alcohol) PHQ-2 Answer Date Recorded PHQ-2 TOTAL SCORE 4 05/30/2023 Social Connections Answer Date Recorded Do you often feel lonely or isolated from those around you? 0 01/30/2024 Financial Resource Strain Answer Date R ecorded Difficulty of Paying Living Expenses 3 01/30/2024 Difficulty of Paying Living Expenses Not on file 01/30/2024 Food Insecurity Answer Date Recorded Do you worry your food will run out before you are able to buy more? 1 01/30/2024 Transportation Needs Answer Date Record ed Does lack of transportation keep you from medica l appointments? 1 01/30/2024 Does lack of transportation keep you from work, meetings or getting things that you need? 1 01/30/2024 Housing Stability Answer Date Recorded What is your housing situation today? 1 01/30/2024 Utilities Answer Date Recorded Do you have trouble paying f or utilities (for example, heat, electricity, water, phone)? 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 Gender Identity Not on file Sexual Orientation Not on file Obstetrics History Last Filed Vital Signs Vital Sign Reading Time Taken Comments Blood Pressure 133/84 01/30/2024 4:05 PM CDT Pulse 90 01/30/2024 4:05 PM CDT Temperature 36.6 C (97.9 F) 01/30/2024 4:05 PM CDT Respiratory Rate 20 01/30/2024 4:05 PM CDT Oxygen Saturation 98% 01/30/2024 4:05 PM CDT Inhaled Oxygen Concentration - - Weight 81.5 kg (179 lb 9.6 oz) 05/30/2023 2:42 P M UPHOLSTERY TECHNICIAN Height 164.5 cm (5' 4.76) 05/30/2023 2:42 PM CS T Body Mass Index 30.11 05/30/2023 2:42 PM UPHOLSTERY TECHNICIAN Plan of Treatment Health Maintenance Due Date Last Done Comments HIV for age 15-65 2016 Hepatitis C screening for ag e 18-79 07/26/2019 Pneumococcal series for age 6-49 (1 of 2 - PCV) 2020 11/17/2002, 09/02/2002, 07/16/2002, Additional history exists COVID-19 vaccine series (2023- season) 2024 01/29/2021, 01/01/2021 BMI (ht and wt on same day) for age 18+ 05/30/2024 05/30/2023, 10/16/2021, 12/05/2020, Additional history exists Depression screening for age 12+ 05/30/2024 05/30/19 24, 08/28/2015 Influenza Vaccine (#1) 2025 8, 04/28/2017, 04/28/2015, Additional history exists Tetanus booster 05/30/2033 05/30/2023, 06/01/2012 Hepatitis B series for 19+ Completed 09/03, 09/02/2002, 05/04/2002 HPV series for age 9-26 Completed 04/28/2017, 08/22 /2014 Insurance MEDICAID MEDICAID Care Teams Textile Machine Mechanic Relationship Specialty [place] [address] [place] [address] PCP - General Family Practice 10/26/20
--- OUTSIDE RECORDS SUMMARY | 2025-01-09 15:58 | XMS_ITS | Clinical Summary ---
Author Organization [facility] Address [address] [place] [address] Care Team Providers Care Physiotherapy Practice Manager Name Role Phone [facility] Primary Care Provider Allergies Active Allergy Reactions Criticality Noted Date Comments Amoxicillin Swelling 10/06/2011 Penicillins 03/03/2019 Medications Lisdexamfetamin e Dimesylate (VYVANSE PO) Take 60 mg by mouth daily Active TRAZODONE HCL PO Take 150 mg by mouth At Bedtime Active QUEtiapine Fumarate (SEROQUEL PO) Take 25 mg by mouth 3 times daily Active QUEtiapine Fumarate (SEROQUEL PO) Take 100 mg by mouth At Bedtime Active TOPIRAMATE PO Take 100 mg by mouth daily Active FLUoxetine HCl (PROZAC PO) Take 30 mg by mouth daily Active Active Problems Problem Noted Date Diagnosed Date ADHD (attention deficit hyperactivity disorder) 08/07/2019 Autism 08/07/2019 Social History Tobacco Use Types Packs/Day Years Used Date Smoking Tobacco: Never Smokeless Tobacco: Never Alcohol Use Standard Drinks/Week Comments No 0 (1 standard drink = 0.6 oz pur e alcohol) PHQ-2 Answer Date Recorded PHQ-2 Score 0 08/07/2019 Sex and Gender Information Value Date Recorded Sex Assigned at Not on file 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 Gender Identity Not on file Sexual Orientation Not on file Last Filed Vital Signs Vital Sign Reading Time Taken Comments Blood Pressure 112/74 08/07/2019 3:52 PM CDT Pulse 86 08/07/2019 3:52 PM CDT Temperature 36.8 C (98.3 F) 08/07/2019 3:52 PM CDT Respiratory Rate 18 08/07/2019 3:52 PM CDT Oxygen Saturation 97% 08/07/2019 3:52 PM CDT Inhaled Oxygen Concentration - - Weight 83.5 kg (184 lb) 08/07/2019 3:52 PM CDT Height - - Body Mass Index - - Plan of Treatment Not on file Insurance MEDICAID [place] Care Teams Physiotherapy Practice Manager Relationship Specialty Start Date End Date Clinic, [facility] [address] [place] [address] PCP - General 01/07/13
--- OUTSIDE RECORDS SUMMARY | 2025-01-09 15:58 | XMS_ITS | Patient Health Record ---
Author Organization [facility] Address [address] [place] [address] Care Team Providers Care Senior Computer Specialist Name Role Phone LANCE RAYGOZA, CHERELLE Unavailable [phone] Eris Abel MD Unavailable Unavailable Reason For Referral No Information Plan Of Treatment No Information Insurance Providers Payer Name Payer Address Payer Phone Subscriber Number Group Number Insured Name Patient Relationship to Insured Coverage Start Date Coverage End Date [facility] [address] [place] [address] [id number] Dony Arcos Self - patient is the insured 8
[2025-01-09 16:06] VITALS: BP 132/85; PULSE 96; RESP 18; TEMP 36.7; O2SAT 96; BMI 30.8
--- NOTE | 2025-01-09 16:14 | ED.GENADULT ---
HPI - General Adult General Date Seen: 01/09/25 Chief complaint: Abdominal Pain Stated complaint: Bloody Stool Time Seen by Provider: 01/09/25 16:11 History of Present Illness HPI narrative: 24-year-old male with history of autism, ADHD, and self-reported history rectal hemorrhoids. He presents to the ER today with his mother. They note that he does struggle with chronic constipation and has had some bloody stools in the past. He has never had to see the doctor for them or had surgery. For the past couple weeks he has been constipated and only stooling every few days. With each BM, which is typically hard brown stool (patient denies black or blood tinged stool) he has noted bright red liquid blood in the toilet and bright red blood on the toilet paper. He does have pain in his rectum when he defecates. He does not have abdominal pain. No fever chills. No lightheadedness. His mother was aware of this problem and his scheduled appointment with his PCP, but they were apparently called today and told that the appointment did be canceled to reschedule. They came to the ER to desiring evaluation. He did have a bloody stool this morning as well. He has no other unusual bleeding or bruising. He is not on any anticoagulants. Incidentally, mother notes that he needs a refill of 1 of his prescription medications, Vyvanse. They are out. They were going to get a refill that his primary care provider's office, but since that appointment has been canceled, they need a refill from the ER today. Related Data Home Medications ?Medication ?Instructions ?Recorded ?Confirmed fluoxetine 40 mg capsule 40 mg PO QAM 06/13/23 09/23/23 hydroxyzine HCl 25 mg tablet 25 mg PO QPM PRN anxiety 06/13/23 06/13/23 clonazepam 1 mg tablet 1 mg PO BID PRN 09/23/23 09/23/23 quetiapine 50 mg tablet (Seroquel) 100 mg PO QHS 09/23/23 09/23/23 trazodone 50 mg tablet 100 mg PO QHS 09/23/23 09/23/23 Previous Rx's ?Medication ?Instructions ?Recorded lisdexamfetamine 60 mg capsule 60 mg PO DAILY #14 caps 08/17/25 (Vyvanse) Allergies Allergy/AdvReac Type Severity Reaction Status Date / Time Penicillins Allergy Verified 12/09/22 16:31 [facility] Social History Smoking Status: Current every day smoker Do you use any of these nicotine containing products: E-Cigarettes and Vaping Products Second hand tobacco smoke exposure: No How often do you have a drink containing alcohol: never How often do you have six or more drinks on one occasion: Never AUDIT-C Alcohol total score: 0 Non-prescribed substance use: marijuana (any form) Non-prescribed substance use details: daily medical marijuana service: No Exam Narrative: Exam Narrative: Constitutional: Appears well-developed and well-nourished. Alert. Initially allows his mother to provide history but subsequently becomes more conversant. Chewing on his smart phone case. Appears anxious. Mother notes a history of autism.. Non toxic. HENT: Head: Atraumatic. Nose: Nose normal. Mouth/Throat: Oral mucosa is clear and moist. no trismus. Pharynx normal. Tonsils symmetric. No tonsillar enlargement, erythema, or exudate. Eyes: Conjunctivae normal. EOM normal. Pupils equal, round, and reactive to light. No scleral icterus. Neck: Normal range of motion. Neck supple. No tracheal deviation present. Cardiovascular: Normal rate, regular rhythm. No gallop. No friction rub. No murmur heard. Symmetric radial artery pulses Pulmonary/Chest: Effort normal. No stridor. No respiratory distress. No wheezes. No rales. No rhonchi . No tenderness. Abdominal: Soft. Bowel sounds normal. No distension. No mass. No tenderness. No rebound. No guarding. Rectal: Performed with the patient alone. He does not want anyone other than myself and him in the room. Normal gluteal cleft. Normal external rectum but when I retract his rectum I do see a fissure in the posterior midline. No active bleeding. Musculoskeletal: RUE: Normal range of motion. No tenderness. No deformity LUE: Normal range of motion. No tenderness. No deformity RLE: Normal range of motion. No edema. No tenderness. No deformity LLE: Normal range of motion. No edema. No tenderness. No deformity Neurological: Alert and oriented to person, place, and time. Normal strength. CN II-VII intact. No sensory deficit. GCS eye subscore is 4. GCS verbal subscore is 5. GCS motor subscore is 6. Normal coordination Skin: Skin is warm and dry. No rash noted. No pallor. Normal capillary refill. Psychiatric: Normal mood. Normal affect. Const: Vital Signs, click to edit/add: Vital Signs - 24 hr 01/09/25 16:06 Temperature 98.0 F Pulse Rate [Pulse Oximeter] 96 Respiratory Rate 18 Blood Pressure [Ri ght Upper Arm] 132/85 Pulse Oximetry 96 Oxygen Delivery Me thod Room Air Course Vital Signs Vital signs: Initial Vital Signs Temperature 98.0 F 01/09/25 16:06 Temperature Source Temporal Artery Scan 01/09/25 16:06 Pulse Rate 96 01/09/25 16:06 Respiratory Rate 18 01/09/25 16:06 Blood Pressure 132/85 01/09/25 16:06 Blood Pressure Mean 100 01/09/25 16:06 Blood Pressure Position Supine 01/09/25 16:06 Pulse Oximetry 96 01/09/25 16:06 Oxygen Delivery Method Room Air 01/09/25 16:06 Vital Signs Temperature 98.0 F 01/09/25 16:06 Pulse Rate 96 01/09/25 16:06 Respiratory Rate 18 01/09/25 16:06 Blood Pressure 132/85 01/09/25 16:06 Pulse Oximetry 96 01/09/25 16:06 Oxygen Delivery Method Room Air 01/09/25 16:06 Temperature 98.0 F 01/09/25 16:06 Pulse Rate 96 01/09/25 16:06 Respiratory Rate 18 01/09/25 16:06 Blood Pressure 132/85 01/09/25 16:06 Pulse Oximetry 96 01/09/25 16:06 Oxygen Delivery Method Room Air 01/09/25 16:06 Medical Decision Making MDM Narrative Medical decision making narrative: Pleasant 24-year-old gentleman with does have history of anxiety autism presenting to the ER today with intermittent light red liquid blood per rectum ongoing off and on for the past couple of weeks. Mother does report a chronic history of constipation with recent constipation pattern hard stools. Differential here would include fissure, bleeding hemorrhoid, rectal trauma as well as other causes such as colitis, AVM, or other causes of lower GI bleeding. On my clinical exam he does have a fissure affecting the posterior midline of his rectum. Will treat supportively. At this point he does not require labs for hemoglobin or coagulation parameters. I do not think he needs to be admitted for serial hemoglobins. Will treat with the stool softener stick with a goal for soft stool but not diarrhea. Also recommend Sitz baths twice daily and after each bowel movement. Precautions for return to the ER reviewed. Incidentally mother also requests refill of Vyvanse. Patient is out but has been on it chronically. I agreed to give him a 2 week refill prescription and they will follow-up with her PCP for further refills. Discharge Plan Discharge Clinical Impression: Rectal fissure, Medication refill Patient Disposition: Home w/ Parent or Adult Instructions: Anal Fissure (ED) Additional Instructions: As we discussed, please come back to the ER right away if you have worsening pain in your rectum, increasing bloody stools, abdominal pain, fever, lightheadedness or dizziness, or any concerns. We suspect that your bleeding is caused by a fissure at the opening of urine anus. To help this fissure heel, start a stool softener today in order to keep her stools softer. Be sure to soak your pain is be in a tub of warm water twice daily and after each bowel movement. Please continue on your other regular medications. Prescriptions: New lisdexamfetamine [Vyvanse] 60 mg capsule 60 mg PO DAILY Qty: 14 0RF No Action fluoxetine 40 mg capsule 40 mg PO QAM hydroxyzine HCl 25 mg tablet 25 mg PO QPM PRN (Reason: anxiety) trazodone 50 mg tablet 100 mg PO QHS clonazepam 1 mg tablet 1 mg PO BID PRN quetiapine [Seroquel] 50 mg tablet 100 mg PO QHS Follow Up/Referrals: Yi Stephens DO [Primary Care Provider, Family Practice] Stand Alone Forms: [employer] Info Instructions
== END 2025-01-09 16:57 | disposition home or self-care (01) ==
PROVIDERS: Emergency Provider Emergency Medicine; PCP Family Medicine
DX: K60.2 Anal fissure, unspecified (principal); Z76.0 Encounter for issue of repeat prescription
CPT/HCPCS: 99283